=== PATIENT | male | born 1935 | race Caucasian/White ===

== ENCOUNTER 2016-02-28 09:18 | Outpatient (CLI) ==
[2012-07-19 11:12] VITALS: TEMP 99.2
[2016-02-28 15:24] LABS: BASOPHILS # (AUTO) 0.1 K/uL (0-0.2); BASOPHILS % (AUTO) 1.3 % (0.0-3.0); EOSINOPHILS # (AUTO) 0.4 K/ul (0.0-0.7); EOSINOPHILS % (AUTO) 8.9 % (0.0-7.0); HEMATOCRIT 40.1 % (42.0-52.0); HEMOGLOBIN 13.2 g/dl (14.0-18.0); IMMATURE GRANULOCYTE % (AUTO) 0.2 % (0.0-5.0); LYMPHOCYTES # (AUTO) 1.6 K/uL (0.60-3.4); LYMPHOCYTES % (AUTO) 35.6 (10.0-50.0); MEAN CORPUSCULAR HEMOGLOBIN 29.9 pg (27.0-31.0); MEAN CORPUSCULAR HGB CONC 32.9 (31.8-35.4); MEAN CORPUSCULAR VOLUME 90.9 fl (80.0-94.0); MONOCYTES # (AUTO) 0.3 K/uL (0.4-2.0); MONOCYTES % (AUTO) 7.6 (0-10); NEUTROPHILS # (AUTO) 2.1 K/ul (2.0-6.9); NEUTROPHILS % (AUTO) 46.4; PLATELET COUNT 276 10^3/uL (140-440); RED BLOOD COUNT 4.41 10^6/ul (4.70-6.10); WHITE BLOOD COUNT 4.47 K/ul (4.2-10.2)
[2016-02-28 15:30] LABS: BILIRUBIN,URINE Negative (NEGATIVE); KETONES,URINE Negative (NEGATIVE); LEUKOCYTE ESTERASE ,URINE Negative (NEGATIVE); NITRITE,URINE Negative (NEGATIVE); PH,URINE 5.5 (5-9); PROTEIN,URINE Negative (NEGATIVE); URINE, BLOOD Negative (NEGATIVE)
[2016-02-28 15:31] LABS: ADD URINE MICROSCOPIC NO
[2016-02-28 15:47] LABS: ALBUMIN 3.7 g/dL (3.4-5.0); ALBUMIN/GLOBULIN RATIO 0.93; ANION GAP 13.2; BILIRUBIN,TOTAL 0.56 mg/dL (0.00-1.20); BUN/CREATININE RATIO 17.2; CALCIUM 9.7 mg/dL (8.2-10.2); CHOL/HDL RATIO 4.6 (4.5-6.4); CREATININE 0.93 mg/dL (0.60-1.10); POTASSIUM 4.2 mmol/L (3.5-5.1); TOTAL PROTEIN 7.7 g/dL (5.8-8.1)
== END 2016-02-28 09:19 | disposition home or self-care (01) ==
LOC: LAB 09:18
PROVIDERS: ATTEND General Practice
DX: I25.709 Atherosclerosis of coronary artery bypass graft(s), unspecified, with unspecified angina pectoris (principal); D64.9 Anemia, unspecified; E78.5 Hyperlipidemia, unspecified; Z79.899 Other long term (current) drug therapy
CPT/HCPCS: 36415; 80053; 80061; 81001; 85025

== ENCOUNTER 2016-05-26 09:03 | Day surgery (SDC) | payer OTHER ==
[~2016-05-26 09:03] MED LIST: LIDOCAINE 1% 20 ML MDV ONE
[2016-05-26] MEDS ORDERED: LIDOCAINE 2% 2ML SDV ONE (09:44)
[2016-05-26] MEDS ORDERED: LIDOCAINE 1% 20 ML MDV ID ONE (09:44)
[2016-05-26] MEDS ORDERED: DIPRIVAN 20 ML VIAL IVP ONE (12:15)
[2016-05-26] MEDS ORDERED: VERSED ONE (12:15)
[2016-05-26] MEDS ORDERED: LIDOCAINE HCL 2% LUER-JET ONE (12:15)
[2016-05-26 13:18] VITALS: BP 141/78; TEMP 97.8
--- NOTE | 2016-05-27 09:42 | OP ---
INDICATIONS FOR PROCEDURE: 80 year old gentleman presents for an endoscopy. He has some dysphagia. He had a food bolus impaction a few weeks ago with a piece of garlic and Dr. Silva removed this. She noted a Schatzki ring causing narrowing in the distal esophagus. He presents now for evaluation and therapy. MEDICATIONS: SEE ANESTHESIA NOTES. PROCEDURE: ENDOSCOPY, ESOPHAGEAL BIOPSY, CITIZEN [place]. REPORT: The risks, benefits, alternatives and limitations were discussed in detail with the patient. Informed consent was obtained. After adequate sedation was achieved, the video endoscope was introduced in the posterior pharynx and esophagus under direct vision and easily advanced down to the second portion of the duodenum. I then slowly withdrew. The duodenal mucosa appeared unremarkable as did the duodenal bulb. The Antrum body relatively unremarkable. The scope was retroflexed to look at the cardia and fundus which was unremarkable. The scope was anteflexed and withdrawn back through the esophagus. There was a small 1-2cm sliding hiatal hernia. At just about the GE junction there is a ring causing mild to moderate lumen narrowing. The lower esophagus was a little tortuous with the hiatal hernia as well. I biopsied the lower esophagus for histological review. The remaining esophagus appeared unremarkable. I then advanced the scope back down the gastric lumen. I placed the guidewire. Over the guidewire easily I pasted a 54 [employer] [place] Dilator. The patient procedure well with stable vital signs and pulse oximetry throughout. IMPRESSION: 1. Small sliding hiatal hernia 2. Distal esophageal ring successfully dilated as above RECOMMENDATIONS: 1. Await pathology to confirm benign nature. No evidence of Dent's 2. Needs to make sure he cuts and chews his food well into tiny pieces 3. Reflux precautions 4. Will see him back in office as needed. CC: Jian CUEVA
== END 2016-05-26 13:35 | disposition home or self-care (01) ==
LOC: SURG 09:03
PROVIDERS: ATTEND Internal Medicine Gastroenterology
DX: R13.10 Dysphagia, unspecified (principal); D13.0 Benign neoplasm of esophagus; K22.2 Esophageal obstruction; K44.9 Diaphragmatic hernia without obstruction or gangrene

== ENCOUNTER 2016-06-29 09:06 | Outpatient (CLI) ==
[2012-07-19 11:12] VITALS: TEMP 99.2
[2016-06-29 12:43] LABS: BASOPHILS # (AUTO) 0.1 K/uL (0-0.2); BASOPHILS % (AUTO) 1.6 % (0.0-3.0); EOSINOPHILS # (AUTO) 0.4 K/ul (0.0-0.7); HEMATOCRIT 40.9 % (42.0-52.0); HEMOGLOBIN 13.6 g/dl (14.0-18.0); IMMATURE GRANULOCYTE % (AUTO) 0.2 % (0.0-5.0); LYMPHOCYTES # (AUTO) 1.5 K/uL (0.60-3.4); LYMPHOCYTES % (AUTO) 32.8 (10.0-50.0); MEAN CORPUSCULAR HEMOGLOBIN 30.3 pg (27.0-31.0); MEAN CORPUSCULAR HGB CONC 33.3 (31.8-35.4); MEAN CORPUSCULAR VOLUME 91.1 fl (80.0-94.0); MONOCYTES # (AUTO) 0.3 K/uL (0.4-2.0); MONOCYTES % (AUTO) 7.6 (0-10); NEUTROPHILS # (AUTO) 2.2 K/ul (2.0-6.9); NEUTROPHILS % (AUTO) 48.8; PLATELET COUNT 262 10^3/uL (140-440); RED BLOOD COUNT 4.49 10^6/ul (4.70-6.10); WHITE BLOOD COUNT 4.45 K/ul (4.2-10.2)
[2016-06-29 12:56] LABS: BILIRUBIN,URINE Negative (NEGATIVE); KETONES,URINE Negative (NEGATIVE); LEUKOCYTE ESTERASE ,URINE Negative (NEGATIVE); NITRITE,URINE Negative (NEGATIVE); PROTEIN,URINE Negative (NEGATIVE); URINE, BLOOD Negative (NEGATIVE)
[2016-06-29 13:03] LABS: ALBUMIN 3.7 g/dL (3.4-5.0); ALBUMIN/GLOBULIN RATIO 0.9; ANION GAP 13.2; BILIRUBIN,TOTAL 0.54 mg/dL (0.00-1.20); BUN/CREATININE RATIO 16.66; CALCIUM 9.9 mg/dL (8.2-10.2); CHOL/HDL RATIO 4.4 (4.5-6.4); CREATININE 0.84 mg/dL (0.60-1.10); POTASSIUM 4.2 mmol/L (3.5-5.1); TOTAL PROTEIN 7.8 g/dL (5.8-8.1)
[2016-06-29 13:04] LABS: ADD URINE MICROSCOPIC NO
== END 2016-06-29 09:07 | disposition home or self-care (01) ==
LOC: LAB 09:06
PROVIDERS: ATTEND General Practice
DX: E78.5 Hyperlipidemia, unspecified (principal); D64.9 Anemia, unspecified; I10 Essential (primary) hypertension; I25.709 Atherosclerosis of coronary artery bypass graft(s), unspecified, with unspecified angina pectoris; Z79.899 Other long term (current) drug therapy
CPT/HCPCS: 36415; 80053; 80061; 81001; 85025

== ENCOUNTER 2016-10-23 06:37 | Emergency (ER) ==
[2016-10-23 06:56] VITALS: BP 81/45; TEMP 96.4; BMI 31.1
[2016-10-23] MEDS ORDERED: SODIUM CHLORIDE 1,000 ML IV STA (06:57)
[2016-10-23] MEDS ORDERED: ASPIRIN CHEWABLE PO STA (07:08)
[2016-10-23] MEDS ORDERED: ASPIRIN CHEWABLE ONE (07:09)
--- NOTE | 2016-10-23 07:13 | ED.PDOC ---
General ED Provider: Dr. KORIN MEYERS Chief Complaint: Shortness of Air Stated Complaint: Nausea, occasional diarrhea, QUIÑONEZ, and general "just not feeling right" for last 5 or 6 days. Gradually getting worse through the week. No chest pain or pain elsewhere. No weakness. No diaphoresis. Time Seen by Physician: 07:10 Mode of Arrival: Wheelchair Information Source: Patient Exam Limitations: No limitations Primary Care Provider: [facility] Nursing and Triage Documentation Reviewed and Agree: Yes Cardiovascular Complaint Exam - Chest Pain Complaint/Exam Onset: Gradual Duration: sx x 5-6 days, no actual pain Symptoms Are: Still present Timing: Constant Length of Chest Pain Episodes: 0 Initial Severity: Mild Current Severity: Moderate Pain Radiates: Reports: None Aggravating: Reports: Exertion Alleviating: Reports: Rest Associated Signs and Symptoms: Reports: Nausea, Short of air (PMH of CABG) Review of Systems - Review Of Systems Constitutional: Reports: Other (Nonspecific feeling of not being right) Eyes: Reports: No symptoms Ears, Nose, Mouth, Throat: Reports: No symptoms Respiratory: Reports: Short of air Cardiac: Reports: No symptoms GI: Reports: Nausea : Reports: No symptoms Musculoskeletal: Reports: No symptoms Skin: Reports: No symptoms Neurological: Reports: No symptoms Endocrine: Reports: No symptoms Hematologic/Lymphatic: Reports: No symptoms All Other Systems: Reviewed and Negative Past Medical History - Past Medical History Previously Healthy: Yes Endocrine: Reports: None Cardiovascular: Reports: CAD Respiratory: Reports: None Hematological: Reports: None Gastrointestinal: Reports: None Genitourinary: Reports: None Neuro/Psych: Reports: None Musculoskeletal: Reports: None Cancer: Reports: None Other Pertinent Past Medical History: "borderline" HTN (but on no meds for BP) - Surgical History General Surgical History: Reports: CABG - Family History Family History: Reports: None - Social History Smoking Status: Former smoker Hx Substance Use: No Alcohol Screening: None Lives: Alone - Immunizations Tetanus Shot up to Date: Yes Influenza Vaccine within 12 Months: Yes Physical Exam - Physical Exam Appearance: Well-appearing, No pain distress, Well-nourished Ill-appearing: None Pain Distress: None Eyes: FAYE, EOMI, Conjunctiva clear ENT: Ears normal, Nose normal, Oropharynx normal Neck: Supple Respiratory: Rhonchi (faint rhonchi in left base. Otherwise clear to ausc in AF) Cardiovascular: RRR, Pulses normal, No rub, No murmur GI/: Soft, Nontender, No masses, Bowel sounds normal, No Organomegaly Musculoskeletal: Normal strength, ROM intact, No edema, No calf tenderness Skin: Warm, Dry, Normal color Neurological: Sensation intact, Motor intact, Reflexes intact, Cranial nerves intact, Alert, Oriented Psychiatric: Affect appropriate, Mood appropriate Interpretation - Industrial Health Engineer Rate: Normal Rhythm: Other (junctional with occassional PVCs) Ectopy: PVCs - EKG Interpretation Time of EKG #1: 07:01 Rate: Normal Rhythm: Other (junctional with occasional PVCs) Ectopy: PVCs [place]: NL ST Segment: Other (elevated STs in II, III, & aVF) Critical Care Note - Critical Care Note Total Time (mins): 0 Course - Course Orders, Labs, Meds: Orders Category Date Time Status EKG-(ED ONLY) Stat CARDIO 10/23/16 06:57 Ordered OXYGEN Routine CARDIO 10/23/16 07:08 Ordered ED IV/MEDIPORT/POWERPORT .ONCE EMERGENCY 10/23/16 06:57 Active AMYLASE Stat LAB 10/23/16 06:58 Ordered BLOOD CULTURE Stat LAB 10/23/16 06:57 Ordered CBC W/ AUTO DIFF Stat LAB 10/23/16 06:56 Ordered COMPREHENSIVE METABOLIC PANEL Stat LAB 10/23/16 06:57 Ordered CPK [CREATINE KINASE] Stat LAB 10/23/16 06:59 Ordered LACTIC ACID Stat LAB 10/23/16 06:57 Ordered LIPASE Stat LAB 10/23/16 06:58 Ordered PROCALCITONIN Stat LAB 10/23/16 06:57 Ordered TROPONIN I Stat LAB 10/23/16 06:56 Ordered URINALYSIS C & S IF INDICATED Stat LAB 10/23/16 06:57 Uncollected 0.9 % Sodium Chloride [Saline Flush] MEDS 10/23/16 06:57 Ordered 1 syr IVF PRN PRN Aspirin [Aspirin Chewable] MEDS 10/23/16 07:09 Discontinued 324 mg .ROUTE .STK-MED ONE Aspirin [Aspirin Chewable] MEDS 10/23/16 07:08 Discontinued 324 mg PO ONCE STA Sodium Chloride 0.9% [Sodium Chloride] 1,000 ml MEDS 10/23/16 06:57 Active IV BOLUS CHEST, 1V AP ONLY Stat RADS 10/23/16 06:58 Ordered Medications Generic Name Dose Route Start Last Admin Trade Name Freq PRN Reason Stop Dose Admin Sodium Chloride 1,000 mls @ 1,000 mls/hr 10/23/16 06:57 10/23/16 07:14 Sodium Chloride IV 10/23/16 07:56 1,000 mls/hr BOLUS STA Administration Sodium Chloride 1 syr 10/23/16 06:57 10/23/16 07:13 Saline Flush IVF 1 syr PRN PRN Administration To flush IV Discontinued Medications Generic Name Dose Route Start Last Admin Trade Name Freq PRN Reason Stop Dose Admin Aspirin 324 mg 10/23/16 07:08 10/23/16 07:11 Aspirin Chewable PO 10/23/16 07:09 324 mg ONCE STA Administration Vital Signs: Temp Pulse Resp BP Pulse Ox 10/23/16 06:39 96.4 F L 66 22 81/45 L 85 L AMI Core - Clinical Trial Participant Clinical Trial Participant: No - Statins Reason for not ordering Statins: not indicated - Fibrinolytic Reason for not ordering Fibrinolytic: not indicated (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[facility], in woods laborer within 1 hr) - EKG Initial Interpretation EKG Initial Interpretation Date: 10/23/16 (Acute IWMI) CHARLETTE Risk Score Age >/= 65: Yes >/= 3 CAD Risk Factors: Yes Known CAD (Stenosis >/= 50%): Yes ASA Use in Past 7 Days: Yes Severe Angina (>/= 2 episodes in 24 hours): No EKG ST Changes >/= 0.5mm: Yes CHARLETTE Total Score: 5 CHARLETTE Risk Score: Risk Score Odds of by 30D 0 0.1 (0.1-0.2) 1 0.3 (0.2-0.3) 2 0.4 (0.3-0.5) 3 0.7 (0.6-0.9) 4 1.2 (1.0-1.5) 5 2.2 (1.9-2.6) 6 3.0 (2.5-3.6) 7 4.8 (3.8-6.1) Departure - Departure Time of Disposition: 07:30 Disposition: TSF SHORT-TRM HOSP Discharge Problem: Acute myocardial infarction Condition: Fair Pt referred to PMD for follow-up: No (referred to [place] attendant at [facility] (Dr. Mansfield)) Allergies/Adverse Reactions: Allergies fexofenadine HCl [From Trinh] Allergy (Severe, Verified 10/23/16 06:52) CHEST TIGHTNESS Home Medications: Ambulatory Orders Aspirin [Aspir 81] 81 mg PO DAILY 11/16/14 Garlic 1 each PO DAILY 11/16/14 Cyanocobalamin/FA/Pyridoxine [Virt-Duyen Tablet] 1 tab PO DAILY 10/23/16 [place]-3/Dha/Epa/Fish Oil [[place] 3 500 Softgel] 1 cap PO DAILY 10/23/16 Omeprazole [Prilosec] 20 mg PO QDAC 10/23/16
[2016-10-23 07:33] LABS: BASOPHILS # (AUTO) 0.1 K/uL (0-0.2); BASOPHILS % (AUTO) 0.5 % (0.0-3.0); EOSINOPHILS % (AUTO) 0.3 % (0.0-7.0); HEMOGLOBIN 13.4 g/dl (14.0-18.0); IMMATURE GRANULOCYTE % (AUTO) 1.2 % (0.0-5.0); LYMPHOCYTES # (AUTO) 1.1 K/uL (0.60-3.4); LYMPHOCYTES % (AUTO) 9.8 (10.0-50.0); MEAN CORPUSCULAR HGB CONC 32.7 (31.8-35.4); MEAN CORPUSCULAR VOLUME 91.7 fl (80.0-94.0); MONOCYTES # (AUTO) 0.6 K/uL (0.4-2.0); MONOCYTES % (AUTO) 5.3 (0-10); NEUTROPHILS # (AUTO) 9.2 K/ul (2.0-6.9); NEUTROPHILS % (AUTO) 82.9; PLATELET COUNT 274 10^3/uL (140-440); RED BLOOD COUNT 4.47 10^6/ul (4.70-6.10); WHITE BLOOD COUNT 11.07 K/ul (4.2-10.2)
--- NOTE | 2016-10-23 07:44 | DI ---
EXAM: Chest one view HISTORY: Chest pain COMPARISON: 09/06/2015 TECHNIQUE: Single view of the chest was performed FINDINGS: No airspace consolidation. Chronic blunting left costophrenic angle likely pleural parenc hymal scarring. There is no pleural effusion or pneumothorax. The heart is normal in size. The me diastinal contour is normal, noting atherosclerosis. Median sternotomy wires.. There are no acute abnormalities of the bones. Moderate hiatal hernia. IMPRESSION: 1. No acute cardiopulmonary process. 2. Moderate hiatal hernia
[2016-10-23 07:55] LABS: ALBUMIN 3.6 g/dL (3.4-5.0); ALBUMIN/GLOBULIN RATIO 0.97; ANION GAP 21.4; BILIRUBIN,TOTAL 1.02 mg/dL (0.00-1.20); BUN/CREATININE RATIO 11.29; CALCIUM 9.5 mg/dL (8.2-10.2); CREATININE 1.77 mg/dL (0.60-1.10); POTASSIUM 3.4 mmol/L (3.5-5.1); TOTAL PROTEIN 7.3 g/dL (5.8-8.1)
[2016-10-23 08:29] LABS: TROPONIN I 8.775 ng/ml (0.0000-0.4000)
[2016-10-23 08:30] LABS: CREATINE KINASE MB 100.4 ng/ml (0.0-3.6)
== END 2016-10-23 07:45 | disposition short-term general hospital (02) ==
LOC: ED 06:37
DX: I21.3 ST elevation (STEMI) myocardial infarction of unspecified site (principal); I25.810 Atherosclerosis of coronary artery bypass graft(s) without angina pectoris; R06.02 Shortness of breath
CPT/HCPCS: 36415; 80053; 82150; 82550; 82553; 83605; 83690; 84145; 84484; 85025; 87040; 93005; 93010; 99285